=== PATIENT | male | born 1940 | race Caucasian/White ===

== ENCOUNTER → 2016-06-28 | Outpatient (CLI) | payer OTHER, BC ==
[~2016-06-28] MED LIST: AMLO-110 PO; ATEN50TA8 PO; CLTP PO; LISI40TA PO; LSX20 PO; OMEG10007 PO; SIMV10TA2 PO
[2016-06-28 10:20] LABS: CHOLESTEROL/HDL RATIO 4.8
== END | disposition home or self-care (01) ==
LOC: C.LAB1850 08:28
PROVIDERS: ATTEND Internal Medicine
DX: E78.00 Pure hypercholesterolemia, unspecified (principal)

== ENCOUNTER → 2016-07-22 | Outpatient (CLI) | payer OTHER, BC ==
[2016-07-22 09:35] LABS: HEMATOCRIT 48.6 % (42-52); MEAN CELL VOLUME 86.6 fL (80-100); MEAN CORPUSCULAR HEMOGLOBIN 29.9 pg (25-34); MEAN CORPUSCULAR HGB CONC 34.6 g/dl (32-36); MEAN PLATELET VOLUME 11.1 fL (7.4-10.4); PLATELET COUNT 237 K/uL (130-400); RED BLOOD COUNT 5.61 M/uL (4.7-6.1); WHITE BLOOD COUNT 7.02 K/uL (4.8-10.8)
[2016-07-22 09:54] LABS: URINE APPEARANCE CLEAR (CLEAR); URINE BILIRUBIN NEG (NEG); URINE COLOR YELLOW; URINE EPITHELIAL CELL AUTO 0-5 /lpf (0-5); URINE NITRITE NEG (NEG); URINE PH 6.5 (4.5-7.5); URINE SPECIFIC GRAVITY 1.016 (1.000-1.030); UROBILINOGEN NEG (NEG)
[2016-07-22 10:00] LABS: BLOOD UREA NITROGEN 17 mg/dl (7-18); BUN/CREATININE RATIO 15.4 (10-20); CARBON DIOXIDE 30 mmol/L (21-32); CHLORIDE 105 mmol/L (98-107); GLUCOSE 99 mg/dl (70-99); POTASSIUM 3.7 mmol/L (3.5-5.1); SODIUM 141 mmol/L (136-145)
[2016-07-22 10:01] LABS: PHOSPHORUS 2.4 mg/dl (2.5-4.9)
[2016-07-22 10:05] LABS: MANUAL MICROSCOPIC REQUIRED? NO; REVIEW REQ? NO
[2016-07-22 10:14] LABS: CALCIUM 8.9 mg/dl (8.5-10.1); URINE PROTIEN/CREAT RATIO 0.1 (0-0.2); URINE TOTAL PROTEIN 12.7 mg/dl (0-11.9)
== END | disposition home or self-care (01) ==
LOC: C.LAB1850 08:19
PROVIDERS: ATTEND Internal Medicine Nephrology
DX: I12.9 Hypertensive chronic kidney disease with stage 1 through stage 4 chronic kidney disease, or unspecified chronic kidney disease (principal); N20.0 Calculus of kidney; N18.3 Chronic kidney disease, stage 3 (moderate); E55.9 Vitamin D deficiency, unspecified

== ENCOUNTER → 2017-01-03 | Outpatient (CLI) | payer OTHER, BC ==
[2017-01-03 09:54] LABS: GLUCOSE,FASTING 102 mg/dl (70-99)
[2017-01-03 10:01] LABS: PROSTATE SPECIFIC ANTIGEN < 0.010 ng/ml (0.000-4.000)
[2017-01-03 10:12] LABS: ESTIMATED AVERAGE GLUCOSE 105 mg/dl; HA1C FLAG Normal (Normal)
== END | disposition home or self-care (01) ==
LOC: C.LAB1850 08:37
PROVIDERS: ATTEND Internal Medicine
DX: R73.03 Prediabetes (principal); C61 Malignant neoplasm of prostate

== ENCOUNTER → 2017-07-12 | Outpatient (CLI) | payer OTHER, BC ==
[2017-07-12 10:11] LABS: HEMATOCRIT 48.8 % (42-52); HEMOGLOBIN 16.9 g/dL (14.0-18.0); MEAN CELL VOLUME 86.7 fL (80-100); MEAN CORPUSCULAR HGB CONC 34.6 g/dl (32-36); MEAN PLATELET VOLUME 11.1 fL (7.4-10.4); PLATELET COUNT 249 K/uL (130-400); RED CELL DISTRIBUTION WIDTH CV 13.6 % (11.5-14.5); RED CELL DISTRIBUTION WIDTH SD 42.9 fL (36.4-46.3); WHITE BLOOD COUNT 5.87 K/uL (4.8-10.8)
[2017-07-12 10:40] LABS: ALBUMIN 4.1 gm/dl (3.4-5.0); ALT/SGPT 33 U/L (12-78); AST/SGOT 22 U/L (15-37); BLOOD UREA NITROGEN 16 mg/dl (7-18); CALCIUM 9.3 mg/dl (8.5-10.1); CARBON DIOXIDE 31 mmol/L (21-32); CHOLESTEROL 178 mg/dl (0-200); CREATININE 1.12 mg/dl (0.60-1.40); GLUCOSE 99 mg/dl (70-99); PHOSPHORUS 2.7 mg/dl (2.5-4.9); POTASSIUM 3.6 mmol/L (3.5-5.1); SODIUM 139 mmol/L (136-145)
[2017-07-12 10:41] LABS: LDL CHOLESTEROL CALCULATED 115 mg/dl
[2017-07-12 11:01] LABS: HEMOGLOBIN A1C 5.6 % (4.5-5.6)
== END | disposition home or self-care (01) ==
LOC: C.LAB1850 09:03
PROVIDERS: ATTEND Internal Medicine
DX: I10 Essential (primary) hypertension (principal); N20.0 Calculus of kidney; E55.9 Vitamin D deficiency, unspecified; N18.3 Chronic kidney disease, stage 3 (moderate); E78.00 Pure hypercholesterolemia, unspecified